=== PATIENT | female | born 1990 | race American Indian/Alaskan Native ===

== ENCOUNTER 2022-03-05 12:30 | Outpatient (CLI) | payer OTHER ==
[2022-03-05 14:40] VITALS: BP 111/67
[2022-03-05 15:27] LABS: WBC,Urine < 1.0 /HPF (0.0-6.0)
[2022-03-05 15:29] LABS: Color,Urine Straw (Yellow)
[2022-03-05 16:26] LABS: Amphetamine Screen,Urine Negative; Benzodiazepines Screen,Urine Negative; Cannabinoid Screen,Urine Negative; Cocaine Screen,Urine Negative; Methadone Screen,Urine Negative; Opiate Screen,Urine Negative
[2022-03-05] MEDS ORDERED: LACTATED RINGERS 1,000 ML ONE (16:28)
[2022-03-05] MEDS ORDERED: LACTATED RINGERS 500 ML IV ONE (19:13)
[2022-03-05 20:52] LABS: Hematocrit 23.3 % (30.3-42.9); Hemoglobin 7.7 gm/dl (10.1-14.3); Mean Corpuscular HGB Conc 33 % (30-34); Mean Corpuscular Volume 73 fl (79-97); Platelet Count 109 K/mm3 (140-440); Red Blood Count 3.18 M/mm3 (3.65-5.03); Red Cell Distribution Width 17.1 % (13.2-15.2)
[2022-03-05 21:07] LABS: Alanine Aminotransferase 22 units/L (7-56); Albumin 3.2 g/dL (3.9-5); Blood Urea Nitrogen 5 mg/dL (7-17); Calcium 8.6 mg/dL (8.4-10.2); Hemolysis Index 0
[2022-03-05 21:11] LABS: BUN/Creatinine Ratio 10
== END 2022-03-05 21:47 | disposition home or self-care (01) ==
LOC: TRG 12:30 → APU 12:33 → TRG 21:47
PROVIDERS: ATTEND Obstetrics & Gynecology Gynecology
DX: Z34.93 Encounter for supervision of normal pregnancy, unspecified, third trimester (principal); Z3A.32 32 weeks gestation of pregnancy
CPT/HCPCS: 36415; 80053; 80307; 81001; 82962; 85027